=== PATIENT | female | born 1985 | race Caucasian/White ===

== ENCOUNTER 2020-05-30 09:44 | Emergency (ER) | payer BC ==
[2020-05-30 11:36] LABS: HEMOGLOBIN 15.8 gm/dl (12.3-15.3); RED BLOOD COUNT 5.02 M/UL (4.00-5.10); WHITE BLOOD COUNT 8.8 K/UL (4.5-11.0)
[2020-05-30 11:58] LABS: BUN/CREATININE RATIO 13 (0-10)
[2020-05-30] MEDS ORDERED: ZOFRAN ODT 4 MG4 MG SL (14:32)
[2020-06-19] MEDS ORDERED: PEPCID40 MG PO (12:16)
[2020-06-19] MEDS ORDERED: LEXAPRO20 MG PO (12:16)
[2020-06-19] MEDS ORDERED: ALLEGRA ALLERG180 MG PO (12:16)
[2020-06-19] MEDS ORDERED: AUROVELA PO (12:17)
[2020-06-21] MEDS ORDERED: HYDROCODON-ACE1 EAC4 PO (12:27)
== END 2020-05-30 14:45 | disposition home or self-care (01) ==
LOC: ER1 09:44
PROVIDERS: Physician Assistant
DX: R10.9 Unspecified abdominal pain (principal); R11.0 Nausea; Z79.899 Other long term (current) drug therapy
CPT/HCPCS: 80053; 81001; 82150; 83690; 84703; 85025; 96374; 96375; 96376; 99284; J1885; J2270; J2405; J2550; J7030; Q9967

== ENCOUNTER → 2020-06-21 | Day surgery (SDC) | payer BC ==
[~2020-06-21] MED LIST: ALLEGRA ALLERG180 MG PO; AUROVELA PO; HYDROCODON-ACE1 EAC4 PO; LEXAPRO20 MG PO; PEPCID40 MG PO; ZOFRAN ODT 4 MG4 MG SL
== END | disposition home or self-care (01) ==
LOC: OR 07:01
DX: K81.1 Chronic cholecystitis (principal); K82.8 Other specified diseases of gallbladder; E11.9 Type 2 diabetes mellitus without complications; J45.909 Unspecified asthma, uncomplicated; K21.9 Gastro-esophageal reflux disease without esophagitis; E66.01 Morbid (severe) obesity due to excess calories; F41.9 Anxiety disorder, unspecified; Z68.42 Body mass index [BMI] 45.0-49.9, adult; Z88.8 Allergy status to other drugs, medicaments and biological substances; Z91.048 Other nonmedicinal substance allergy status; Z79.899 Other long term (current) drug therapy
CPT/HCPCS: 84703; J0690; J1100; J2001; J2250; J2405; J2704; J3010; J7030; J7120